=== PATIENT | female | born 1985 | race Caucasian/White ===

== ENCOUNTER 2023-03-24 19:40 | Observation (INO) | payer MEDICARE, MEDICAID, SELFPAY ==
[2023-03-24 19:43] VITALS: BP 102/65; PULSE 71; RESP 18; TEMP 36.6; O2SAT 95; BMI 31.1
--- NOTE | 2023-03-24 19:53 | ED.C_ITS ---
HPI - Psych General: Chief Complaint: Psychiatric Symptoms Stated Complaint: SI Time Seen by Provider: 03/24/23 19:41 Source: patient and other ([facility] staff) Mode of arrival: EMS Limitations: other (Intellectual disability) History of Present Illness: Patient is a 37-year-old female who presents to ED today from her facility of [facility] in [facility] for evaluation of suicide ideation/suicide attempt. Patient tells me she feels suicidal because she misses her family. She states earlier today she grabbed a pair of scissors and tried to cut her left wrist. There is a trivial abrasion to her left volar wrist. According to staff members which we contacted-patient has a longstanding history of attention seeking behaviors and states she has behaviors like this quite frequently. MD complaint: suicidal ideation and feels depressed Onset (ago): hour(s) Duration: intermittent History of same: Yes Relieving factors: none Exacerbating factors: other (states she misses her family) Context: significant life stressor Associated psychiatric symptoms: depression and suicidal ideation Associated symptoms: Reports depression and suicidal ideation; Deny auditory hallucinations, visual hallucinations or homicidal ideation Treatments prior to arrival: none If self harm: admits thoughts of self harm and has acted on plan (cut wrist with scissors) Review of Systems Psych: Reports: anxiety, depression and suicidal ideation; Denies: paranoia, visual hallucinations, auditory hallucinations or homicidal ideation Physical Exam Const: COMMON NORMALS: no acute distress, no limitations, alert and well no urished GENERAL APPEARANCE: cooperative OTHER: at mental baseline per [facility] staff Neuro: SENSORIUM/ORIENTATION: Yes alert Psych: COMMON NORMALS: cooperative, normal affect, speech normal, activity/motor behavior normal, denies hallucinations and denies homicidal ideation APPEARANCE: Yes grossly normal ATTITUDE: Yes calm ACTIVITY/MOTOR BEHAVIOR: Yes appropriate eye contact SPEECH: Yes normal speech MOOD & AFFECT: Yes euthymic mood THOUGHT PROCESS: Other thought process findings present (limited due to intellectual disability) M RADHA/COGNITION: Yes memory grossly intact and Yes cognition grossly impaired (chronic) INSIGHT: Poor insight present (Psych) JUDGEMENT: Poor judgement present (Psych) Course ED course: Attempted to contact patient's legal guardian but was unsuccessful Consultations: Consultation #1: Dr. Villagomez-did not feel patient would benefit from inpatient hospitalization at this time; discharge back to her facility with plan to remove anything potentially dangerous or hazardous from patient Vital Signs: Vital signs: Vital Signs Temperature 98 F 03/24/23 19:43 Pulse Rate 71 03/24/23 19:43 Respiratory Rate 18 03/24/23 19:43 Blood Pressure 102/65 03/24/23 19:43 Pulse Oximetry 95 03/24/23 19:43 MDM - Psych Medical Decision Making Psychiatry felt patient would be unlikely to benefit from hospitalization and inpatient therapy/management. Recommend discharge back to [facility] with plan to remove any sharps/potentially harmful objects and facility provider can adjust any medications if they feel this is indicated. Lab Data 03/24/23 19:55 03/24/23 19:55 Laboratory Results WBC 8.8 10^3/uL (4.0-10.0) 03/24/23 19:55 RBC 4.87 10^6/uL (4.1-5.3) 03/24/23 19:55 Hgb 12.8 g/dL (11.5-15.3) 03/24/23 19:55 Hct 39.7 % (37.0-47.0) 03/24/23 19:55 MCV 81.5 fl (81-99) 03/24/23 19:55 MCH 26.3 pg (28.0-34.0) L 03/24/23 19:55 MCHC 32.2 g/dL (30.0-36.0) 03/24/23 19:55 RDW 12.4 % (12.1-15.1) 03/24/23 19:55 Plt Count 276 10^3/cmm (130-400) 03/24/23 19:55 MPV 8.4 fL (7.4-10.4) 03/24/23 19:55 Neut % (Auto) 54.1 % 03/24/23 19:55 Lymph % (Auto) 35.5 % 03/24/23 19:55 Carbon % (Auto) 8.0 % 03/24/23 19:55 Eos % (Auto) 1.7 % 03/24/23 19:55 Baso % (Auto) 0.5 % 03/24/23 19:55 Neut # (Auto) 4.77 10^3/uL (1.8-7.7) 03/24/23 19:55 Lymph # (Auto) 3.1 10^3/uL (0.8-4.8) 03/24/23 19:55 Carbon # (Auto) 0.7 10^3/uL (0.2-0.9) 03/24/23 19:55 Eos # (Auto) 0.2 10^3/uL (0.0-0.8) 03/24/23 19:55 Baso # (Auto) 0.0 10^3/uL (0.0-0.1) 03/24/23 19:55 Nucleated RBC % (auto) 0 % 03/24/23 19:55 Nucleated RBCs # 0.0 /100WBC 03/24/23 19:55 Sodium 138 mmol/L (136-145) 03/24/23 19:55 Potassium 4.0 mmol/L (3.5-5.1) 03/24/23 19:55 Chloride 100 mmol/L (98-107) 03/24/23 19:55 Carbon Dioxide 27 mmol/L (22-29) 03/24/23 19:55 Anion Gap 15.0 (5-19) 03/24/23 19:55 BUN 4 mg/dL (6-20) L 03/24/23 19:55 Creatinine 0.7 mg/dL (0.5-0.9) 03/24/23 19:55 GFR Calculation 95.2 mL/min (90-130) 03/24/23 19:55 Glucose 103 mg/dL (65-115) 03/24/23 19:55 Calculated Osmolality 283 mOsm/kg (285-295) L 03/24/23 19:55 Calcium 8.5 mg/dL (8.5-10.5) 03/24/23 19:55 Total Bilirubin 0.2 mg/dL (0.15-1.2) 03/24/23 19:55 AST 11 U/L (0-32) 03/24/23 19:55 ALT 11 U/L (0-33) 03/24/23 19:55 Alkaline Phosphatase 76 U/L (35-105) 03/24/23 19:55 Total Protein 6.7 g/dL (6.6-8.7) 03/24/23 19:55 Albumin 4.1 g/dL (3.5-5.2) 03/24/23 19:55 Globulin 2.6 g/dL (1.3-4.6) 03/24/23 19:55 HCG, Qual Negative (Negative) 03/24/23 19:55 Salicylates < 0.3 mg/dL (3-10) L 03/24/23 19:55 Acetaminophen < 5.0 ug/mL (10-30) L 03/24/23 19:55 Ethyl Alcohol < 10 mg/dL (0-10) 03/24/23 19:55 Discharge Plan Discharge Patient Disposition: Home Clinical Impression: Self-harming behavior Condition: Stable Discharge Orders: Discharge ED (Routine); Ordered 03/24/23 Ordered By: Anna Serrano Activity Restrictions/Additional Instructions: We have consulted with psychiatry on-call who does not feel patient would benefit from inpatient hospitalization at this time. We will be discharging patient back to her facility. We recommend all sharps or potentially harmful objects be removed from patient's access. Please follow-up with her primary care provider for Vivien Samuel. Coding Level of Care Code ED Automation Architect for Yovani Evans
[2023-03-24 20:00] LABS: Basophils % 0.5 %; Eosinophils # 0.2 10^3/uL (0.0-0.8); Eosinophils % 1.7 %; Hematocrit 39.7 % (37.0-47.0); Hemoglobin 12.8 g/dL (11.5-15.3); Lymphocytes # 3.1 10^3/uL (0.8-4.8); Lymphocytes % 35.5 %; Mean Corpuscular HGB Conc 32.2 g/dL (30.0-36.0); Mean Corpuscular Hemoglobin 26.3 pg (28.0-34.0); Mean Corpuscular Volume 81.5 fl (81-99); Mean Platelet Volume 8.4 fL (7.4-10.4); Monocytes # 0.7 10^3/uL (0.2-0.9); Neutrophils # 4.77 10^3/uL (1.8-7.7); Neutrophils % 54.1 %; Nucleated Red Blood Cells % 0 %; Platelet Count 276 10^3/cmm (130-400); Red Blood Count 4.87 10^6/uL (4.1-5.3); Red Cell Distribution Width 12.4 % (12.1-15.1); White Blood Count 8.8 10^3/uL (4.0-10.0)
[2023-03-24 20:21] LABS: Alanine Aminotransferase 11 U/L (0-33); Albumin Level 4.1 g/dL (3.5-5.2); Alkaline Phosphatase 76 U/L (35-105); Aspartate Amino Transferase 11 U/L (0-32); Blood Urea Nitrogen 4 mg/dL (6-20); Calcium 8.5 mg/dL (8.5-10.5); Carbon Dioxide 27 mmol/L (22-29); Chloride 100 mmol/L (98-107); Creatinine Clr Calc Pharmacy 107.8515; Globulin 2.6 g/dL (1.3-4.6); Glomerular Filtration Rate 95.2 mL/min (90-130); Glucose 103 mg/dL (65-115); HCG, Serum Qual Negative (Negative); Osmolality Calculated 283 mOsm/kg (285-295); Sodium 138 mmol/L (136-145); Total Bilirubin 0.2 mg/dL (0.15-1.2); Total Protein 6.7 g/dL (6.6-8.7)
[2023-03-24 20:22] LABS: Acetaminophen < 5.0 ug/mL (10-30); Alcohol Level < 10 mg/dL (0-10); Salicylate < 0.3 mg/dL (3-10)
--- NOTE | 2023-03-25 01:07 | W.ED.PSYCHS ---
HPI - Psych General: Chief Complaint: Psychiatric Symptoms Stated Complaint: SI Time Seen by Provider: 03/24/23 19:41 Source: patient and other ([facility] staff) Mode of arrival: EMS History of Present Illness: Duration: intermittent Relieving factors: none Exacerbating factors: other (states she misses her family) Treatments prior to arrival: none Course Vital Signs: Vital signs: Vital Signs Temperature 98 F 03/24/23 19:43 Pulse Rate 71 03/24/23 19:43 Respiratory Rate 18 03/24/23 19:43 Blood Pressure 102/65 03/24/23 19:43 Pulse Oximetry 95 03/24/23 19:43 MDM - Psych Lab Data 03/24/23 19:55 03/24/23 19:55 Laboratory Results WBC 8.8 10^3/uL (4.0-10.0) 03/24/23 19:55 RBC 4.87 10^6/uL (4.1-5.3) 03/24/23 19:55 Hgb 12.8 g/dL (11.5-15.3) 03/24/23 19:55 Hct 39.7 % (37.0-47.0) 03/24/23 19:55 MCV 81.5 fl (81-99) 03/24/23 19:55 MCH 26.3 pg (28.0-34.0) L 03/24/23 19:55 MCHC 32.2 g/dL (30.0-36.0) 03/24/23 19:55 RDW 12.4 % (12.1-15.1) 03/24/23 19:55 Plt Count 276 10^3/cmm (130-400) 03/24/23 19:55 MPV 8.4 fL (7.4-10.4) 03/24/23 19:55 Neut % (Auto) 54.1 % 03/24/23 19:55 Lymph % (Auto) 35.5 % 03/24/23 19:55 [place] % (Auto) 8.0 % 03/24/23 19:55 Eos % (Auto) 1.7 % 03/24/23 19:55 Baso % (Auto) 0.5 % 03/24/23 19:55 Neut # (Auto) 4.77 10^3/uL (1.8-7.7) 03/24/23 19:55 Lymph # (Auto) 3.1 10^3/uL (0.8-4.8) 03/24/23 19:55 [place] # (Auto) 0.7 10^3/uL (0.2-0.9) 03/24/23 19:55 Eos # (Auto) 0.2 10^3/uL (0.0-0.8) 03/24/23 19:55 Baso # (Auto) 0.0 10^3/uL (0.0-0.1) 03/24/23 19:55 Nucleated RBC % (auto) 0 % 03/24/23 19:55 Nucleated RBCs # 0.0 /100WBC 03/24/23 19:55 Sodium 138 mmol/L (136-145) 03/24/23 19:55 Potassium 4.0 mmol/L (3.5-5.1) 03/24/23 19:55 Chloride 100 mmol/L (98-107) 03/24/23 19:55 Carbon Dioxide 27 mmol/L (22-29) 03/24/23 19:55 Anion Gap 15.0 (5-19) 03/24/23 19:55 BUN 4 mg/dL (6-20) L 03/24/23 19:55 Creatinine 0.7 mg/dL (0.5-0.9) 03/24/23 19:55 GFR Calculation 95.2 mL/min (90-130) 03/24/23 19:55 Glucose 103 mg/dL (65-115) 03/24/23 19:55 Calculated Osmolality 283 mOsm/kg (285-295) L 03/24/23 19:55 Calcium 8.5 mg/dL (8.5-10.5) 03/24/23 19:55 Total Bilirubin 0.2 mg/dL (0.15-1.2) 03/24/23 19:55 AST 11 U/L (0-32) 03/24/23 19:55 ALT 11 U/L (0-33) 03/24/23 19:55 Alkaline Phosphatase 76 U/L (35-105) 03/24/23 19:55 Total Protein 6.7 g/dL (6.6-8.7) 03/24/23 19:55 Albumin 4.1 g/dL (3.5-5.2) 03/24/23 19:55 Globulin 2.6 g/dL (1.3-4.6) 03/24/23 19:55 HCG, Qual Negative (Negative) 03/24/23 19:55 Salicylates < 0.3 mg/dL (3-10) L 03/24/23 19:55 Acetaminophen < 5.0 ug/mL (10-30) L 03/24/23 19:55 Ethyl Alcohol < 10 mg/dL (0-10) 03/24/23 19:55 Discharge Plan Discharge Patient Disposition: Home Clinical Impression: Self-harming behavior Condition: Stable Activity Restrictions/Additional Instructions: We have consulted with psychiatry on-call who does not feel patient would benefit from inpatient hospitalization at this time. We will be discharging patient back to her facility. We recommend all sharps or potentially harmful objects be removed from patient's access. Please follow-up with her primary care provider for Vivien Samuel. Coding Level of Care Code ED Irrigator Gravity Flow for Yovani Evans
--- NOTE | 2023-03-25 01:22 | PC.NURSE ---
While waiting for transportation to be set up for patient. The [facility] faxed over Emergency Discharge papers discharging her into the Care of the ER. Pt's Guardian was notified of the situation and is unable to find placement due to it being the weekend. Pt's Guardian stated she would call around and see if she could possibly find placement but did not have a way to get her placed this evening.
[2023-03-25 06:03] VITALS: BP 87/62; PULSE 60; RESP 16; O2SAT 96
--- NOTE | 2023-03-25 07:16 | PC.NURSE ---
WHILE AT BEDSIDE PT IS RESTING QUIETLY ON LEFT SIDE WITH EYES CLOSED IN BED.PT HAS GOOD CHEST RISE AND FALL.
[2023-03-25 09:34] LABS: Amphetamines Screen Urine Negative (Negative); Barbiturates Screen Urine Negative (Negative); Benzodiazepines Screen Urine Negative (Negative); Cocaine Screen Urine Negative (Negative); Opiate Screen Urine Negative (Negative); PCP Screen Urine Negative (Negative); THC Screen Urine Negative (Negative)
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
--- NOTE | 2023-03-25 12:09 | PC.NURSE ---
ATTEMPTED REPORT AT [facility] INFORMED BY REPRESENATIVE THAT THE DON REFUSED TO ACCEPT PT AT THIS TIME. NOTIFIED CHARGE NURSE.
--- NOTE | 2023-03-25 17:48 | PC.NURSE ---
WHILE AT BEDSIDE PT IS IN NAD. PT DENIES ANY NEEDS AT THIS TIME. PT IS CALM AND COOPERATIVE.
[2023-03-26 00:45] VITALS: BP 96/66; PULSE 74; RESP 16; O2SAT 94
[2023-03-26] MEDS: tizanidine 4 mg Tablet PO ×2 (03:29→21:57)
[2023-03-26] MEDS: trazodone 100 mg Tablet PO ×2 (03:29→21:57)
--- NOTE | 2023-03-26 09:58 | PC.NURSE ---
PT IS RESTING QUIETLY ON HER RIGHT SIDED WITH EYES CLOSED WITH GOOD CHEST RISE AND FALL.
--- NOTE | 2023-03-26 10:25 | PC.NURSE ---
PC TO PHARMACY FOR NEED OF MEDICATIONS. HE VERBALIZED THEY WOULD BE MADE AVAILABLE SHADY.
[2023-03-26] MEDS: divalproex DR 250 mg Tablet PO ×2 (10:33→18:19)
[2023-03-26] MEDS: quetiapine 100 mg Tablet PO ×3 (10:33→21:57)
[2023-03-26] MEDS: levothyroxine 50 mcg Tablet PO (10:33)
[2023-03-26] MEDS: estradiol 1 mg Tablet PO (10:33)
[2023-03-26] MEDS: pantoprazole DR 40 mg Tablet PO (10:33)
--- NOTE | 2023-03-26 14:49 | PC.NURSE ---
while at bedside pt is in nad. pt is calm and cooperative.
[2023-03-26] MEDS: atorvastatin 40 mg Tablet PO (18:18)
--- NOTE | 2023-03-26 18:24 | PC.NURSE ---
WHILE AT BEDSIDE PT IS IN NAD. PT DENIES ANY NEEDS. PT IS CALM AND COOPERATIVE. PT TRAY REMOVED FROM ROOM AND TRASH PICKED UP.
[2023-03-26] MEDS: acetaminophen 500 mg Tablet 1000 MG PO (20:14)
[2023-03-27 03:04] VITALS: BP 114/70; PULSE 58; RESP 16; O2SAT 94
[2023-03-27 06:28] VITALS: BP 119/89; PULSE 68; O2SAT 94
--- NOTE | 2023-03-27 08:44 | PC.NURSE ---
Pt was offered a breakfast tray, she said she was not hungry at this time, she justs to sleep at this time
[2023-03-27] MEDS: levothyroxine 50 mcg Tablet PO (09:32)
[2023-03-27] MEDS: estradiol 1 mg Tablet PO (09:32)
[2023-03-27] MEDS: trazodone 100 mg Tablet PO (09:32)
[2023-03-27] MEDS: pantoprazole DR 40 mg Tablet PO (09:32)
[2023-03-27] MEDS: quetiapine 100 mg Tablet PO ×3 (09:32→21:23)
[2023-03-27] MEDS: divalproex DR 250 mg Tablet PO ×2 (09:33→21:39)
[2023-03-27 09:44] VITALS: BP 122/71; PULSE 78; O2SAT 96
--- NOTE | 2023-03-27 12:57 | PC.NURSE ---
Pt was given lunch tray, no other needs at this time
--- NOTE | 2023-03-27 13:18 | PC.NURSE ---
pt resting in bed, no needs
--- NOTE | 2023-03-27 15:10 | PC.SOCIAL ---
ALEX has spoken with Guille Kelly, system administrator at [facility] and requested patient's health records so that referral can be sent including patient's level two information. CM has requested three times today, and it has not yet been received. Referral faxed to the following facilities: [facility] Zeynep declines referral at this time. [facility] Joesph Banuelos Spoke with patient's guardian multiple times throughout today. She states that she sent referral to [facility], [facility], and [facility]. She states that she filed for an appeal of the emergency discharge but has not heard results yet. She states that she did not request for patient to b brought to our facility, she would have preferred patient go to [facility] where patient is always taken for continuity of care. She also states that patient will need a locked unit. CM called the state to follow up on hotlines. They stated that they could not find any information regarding hotline. CM requested hotline reference number from appropriate staff. Obtained number; attempted to call the [facility] office, , am told that Tania Ludwig is on the call and will call this CM back. Awaiting call. CM will continue to follow up on referrals. Attempted to reach guardian at this time, voicemail left.
--- NOTE | 2023-03-27 16:33 | PC.NURSE ---
Pt watching TV, very pleasant, states she needs nothing at this time
[2023-03-27] MEDS: atorvastatin 40 mg Tablet PO (18:13)
[2023-03-27 18:14] VITALS: O2SAT 98
[2023-03-27 20:00] VITALS: BP 136/97; PULSE 91; RESP 16; O2SAT 91
[2023-03-27] MEDS: tizanidine 4 mg Tablet PO (21:23)
[2023-03-27] MEDS: lidocaine 2% viscous 15 ML, aluminum-mag hydrox-simethicon 30 ML, sucralfate oral liq 1 GM PO (22:13)
[2023-03-27] MEDS: ketorolac 30 mg/mL INJ IM (22:18)
--- NOTE | 2023-03-27 22:24 | PC.NURSE ---
patient c/o substernal chest pain that she is rating 8/10, sharp. States that it has been constant for the last 30 mins. Vitals and ekg wnl and Dr pemberton notified. orders for medication placed.
--- NOTE | 2023-03-27 22:58 | PC.NURSE ---
Offered patient shower and she has declined at this time. Informed her to let staff know when she is ready.
--- NOTE | 2023-03-28 03:19 | PC.NURSE ---
Assumed care of pt from MANN Bah at this time.
[2023-03-28 04:14] VITALS: BP 120/76; PULSE 58; O2SAT 94
[2023-03-28 06:25] VITALS: BP 107/79; PULSE 75; RESP 18; O2SAT 92
--- NOTE | 2023-03-28 08:16 | PC.SOCIAL ---
Referrals Followed up with: Mukul Samuel- [facility] not available yet. Allan Bashir- [facility] not in yet, message left. [facility]- Spoke with Jo; she states that she has not reviewed yet; it is the next one on her pile though. Jose Antonio Lawrence- not in yet. [facility]-Spoke with Chely, she declines referral.
--- NOTE | 2023-03-28 08:48 | PC.NURSE ---
Assumed care of pt this morning, pt offered water she declined at this time, pt said she dont need anything, breakfast tray was not here i called kitchen to get pt a tray
--- NOTE | 2023-03-28 09:14 | PC.NURSE ---
Pt given breakfast tray
[2023-03-28] MEDS: trazodone 100 mg Tablet PO (09:36)
[2023-03-28] MEDS: pantoprazole DR 40 mg Tablet PO (09:36)
[2023-03-28] MEDS: estradiol 1 mg Tablet PO (09:36)
[2023-03-28] MEDS: quetiapine 100 mg Tablet PO ×3 (09:36→20:54)
[2023-03-28] MEDS: divalproex DR 250 mg Tablet PO ×2 (09:37→20:54)
[2023-03-28] MEDS: levothyroxine 50 mcg Tablet PO (09:37)
--- NOTE | 2023-03-28 09:43 | PC.NURSE ---
this sign writer hand offered pt a shower after breakfast and she agreed. after pt finished breakfast pt was asked if she was ready to shower and she wanted to wait a couple hours and take a shower after she takes a nap.
--- NOTE | 2023-03-28 10:11 | PC.SOCIAL ---
Sherin from [facility] declines referral. [facility] declines referral.
--- NOTE | 2023-03-28 11:25 | PC.SOCIAL ---
Currently patients referral is out to: 1)[facility]- Unable to reach Jo to follow up 2)[facility]- Called at this time; am told that contracts administrator is out picking up a client, but referral is on her desk for when she returns. 3) [facility]- Voicemail left 4)[facility]- Faxed at this time, Spoke with Candace, she states that patient has been there before; she is unsure if she is allowed to return but will watch for referral and call us back. 5)[facility]-Still reviewing; will call back. 6)[facility]- Voicemail left 7)[facility] Pined[facility]- Faxed at this time. Declined: 1)[facility]-Spoke with Tea, she states that they cannot accept patient, DON reported unable to meet needs. 2)[facility] 3)[facility] 4)[facility] Pined[facility] 5)[facility] 6)[place] 7)[place] 8)[facility]- Spoke with them at this time, Bilingual Research Interviewer does not feel patient will be a good fit for them.
--- NOTE | 2023-03-28 13:35 | PC.SOCIAL ---
Called the following facilities at this time to follow up on referral: 1)[facility]-Spoke with Jo, she states that they need a copy of the level 2; she is going to call the guardian and request a copy of it; she will call us back. 2)[facility]- Called at this time; am told that network support administrator is out picking up a client, but referral is on her desk for when she returns. 3) [facility]- Voicemail left. 4)[facility]- Spoke with Candace, she states that patient is unable to return to their facility. 5)[facility]- 6)[facility]- 7)[place]-
--- NOTE | 2023-03-28 14:39 | PC.SOCIAL ---
Packet received from [facility]; does not include level two or MN249I information. Requested this from Guille, [employer]. After not receiving, called and spoke with machine farmworker, Amira Argueta. She states that they are looking for it. She states that she pulled up the original WK120C but it is not correct. She asks this CM what she needs to do if they do not have one, because she may not even have one, indicating it was before Amira was employed at [facility]. CM stated that by regulation, she should have one on file, but that she would need to follow up with [facility] regarding that. Informed her that guardian indicated that the level two was already completed, we just need a copy. She states that she will continue to look for it. CM attempted again to reach guardian of patient, no answer at office. Called guardian cell phone, still not able to reach her. Another voicemail left. CM called [facility] in [place] again, as Tania has not called back yet. Am told again that Tania is in the field. Requested that I be able to speak to someone in regards to Public [employer] Engineer/Guardian not answering hospital phone calls. She states that she will get a message to Idania in triage to call CM back.
--- NOTE | 2023-03-28 15:52 | PC.NURSE ---
pt was assisted by this health technical writer to the shower. she used a soapcap and the bottle of body soap. pt was back in room at 1240 in a hospital gown and had no other needs at the time.
--- NOTE | 2023-03-28 15:59 | PC.SOCIAL ---
[facility] Level two received from [facility] and faxed to [facility]. Called at this time to follow-up. Voicemail left.
[2023-03-28 16:00] VITALS: BP 129/89; PULSE 101; RESP 18; TEMP 36.6; O2SAT 96
--- NOTE | 2023-03-28 16:25 | PC.SOCIAL ---
Spoke with Jo at [facility]; she confirms that she received level two and will review. She will get back to [facility].
[2023-03-28 17:59] VITALS: BP 165/74; PULSE 84; RESP 16; O2SAT 95
[2023-03-28 20:00] VITALS: BP 121/85; PULSE 75; RESP 25; TEMP 36.9; O2SAT 95
[2023-03-28] MEDS: sucralfate 1 gm Tablet PO (20:54)
[2023-03-28] MEDS: atorvastatin 40 mg Tablet PO (20:54)
[2023-03-28] MEDS: hyDROXYzine 25 mg Capsule 50 MG PO (20:54)
[2023-03-28] MEDS: risperiDONE 2 mg Tablet PO (20:54)
[2023-03-28] MEDS: tizanidine 4 mg Tablet PO (21:11)
[2023-03-29 06:00] VITALS: BP 107/78; PULSE 83; RESP 12; O2SAT 93
[2023-03-29] MEDS: sucralfate 1 gm Tablet PO ×2 (08:01→14:14)
[2023-03-29] MEDS: hyDROXYzine 25 mg Capsule 50 MG PO ×2 (08:02→14:14)
[2023-03-29] MEDS: trazodone 100 mg Tablet PO (08:02)
[2023-03-29] MEDS: estradiol 1 mg Tablet PO (08:02)
[2023-03-29] MEDS: levothyroxine 50 mcg Tablet PO (08:02)
[2023-03-29] MEDS: divalproex DR 250 mg Tablet PO (08:02)
[2023-03-29] MEDS: pantoprazole DR 40 mg Tablet PO (08:02)
[2023-03-29] MEDS: risperiDONE 2 mg Tablet PO (08:02)
[2023-03-29] MEDS: quetiapine 100 mg Tablet PO ×2 (08:02→14:14)
--- NOTE | 2023-03-29 08:16 | PC.SOCIAL ---
CM called to [facility] at this time; unable to speak with Jo in admissions. CM called public collection administrator's office; no answer. CM called public administrators cell phone; no answer.
--- NOTE | 2023-03-29 10:50 | PC.SOCIAL ---
Contact with Public [employer] Furn[employer] Blower Rebecca, from public administrators office calls and asks if patient is still in our facility. Explained that yes, patient is. She states that she was not sure if patient was released or not. CM explained that this CM called multiple times yesterday and left multiple voicemails with no answer or response. She states that they are still working for emergency placement and hopeful to get her placed today. Asked that she keep CM updated.
--- NOTE | 2023-03-29 11:36 | P.MISC_ITS ---
Miscellaneous Note Purpose of Documentation: Patient was placed on the unit as an administrative placement secondary to abandonment by her intermediate. She had previously been seen by this provider as a consult in the emergency department and then administration decided to place her on the unit for safekeeping while arrangements were made. Note: Patient was brought to the unit and was on the unit for approximately 24 hours. She was seen briefly and expressed no medical or psychiatric concerns. She was given her home medications and none of these medications were evaluated for change or intervention. She was given meals with the other patients as schedul ed. Administration was able to work with her guardian to find a new place for her to reside and arrangements were made to transport her to that location. We did not do any medical/psychiatric interventions or evaluations while she was here and this was the way I was advised to document her presence physically on our unit.
--- NOTE | 2023-03-29 11:48 | PC.SOCIAL ---
Referral faxed to [facility] in [place], [place]. Spoke with data warehouse administrator, Kaylynn about referral. She is going to take a look at referral.
[2023-03-29 14:00] VITALS: BP 134/91; PULSE 86; RESP 16; TEMP 36.8; O2SAT 92
--- NOTE | 2023-03-29 14:24 | PC.SOCIAL ---
Rebecca from public administrators office calls and reports that [facility] has accepted and will need medicaid transportation set up. She confirms address for transportation is [address] [place], [place] [address]. She states that we do not need to do anything more than set up transportation and call report. Asked MNAN Castillo to have nurse call report. MTEnriqueta notified of trip request; trip ID: [id number].
--- NOTE | 2023-03-29 16:32 | PC.NURSE ---
PT SUMMERY PT RESTING MOST OF THE DAY WITH O S/S OF DISTRESS, WHEN UP PT HAS BEEN VERY PLEASANT, WITH O CONCERNS.
== END 2023-03-29 16:10 | disposition home or self-care (01) ==
LOC: ER 03-27 19:33 → NP 03-28 16:10
PROVIDERS: Physician Assistant; Admitting Provider Psychiatry & Neurology Psychiatry; Emergency Provider Family Medicine; Visit Provider Psychiatry & Neurology Psychiatry
DX: F32.9 Major depressive disorder, single episode, unspecified (principal); R45.851 Suicidal ideations; S60.812A Abrasion of left wrist, initial encounter; Y28.8XXA Contact with other sharp object, undetermined intent, initial encounter; F70 Mild intellectual disabilities; F17.290 Nicotine dependence, other tobacco product, uncomplicated; F43.10 Post-traumatic stress disorder, unspecified; F60.9 Personality disorder, unspecified; Z75.1 Person awaiting admission to adequate facility elsewhere; Z79.899 Other long term (current) drug therapy
CPT/HCPCS: 36415; 80053; 80306; 80307; 84703; 85025; 96372; 97165; 99285; G0378; J1885; J8499